=== PATIENT | male | born 1955 | race Caucasian/White ===

== ENCOUNTER → 2020-07-30 | Emergency (ER) | payer MEDICARE, OTHER ==
[~2020-07-30] MED LIST: EPINEPHrine 1 MG/10 ML Abboject SYRINGE ONE; Sodium Bicarb 50 MEQ/50 ML Abboject 8.4% SYRINGE ONE
== END ==
LOC: BURERS 19:12
DX: I46.9 Cardiac arrest, cause unspecified (principal); E11.9 Type 2 diabetes mellitus without complications; I10 Essential (primary) hypertension
CPT/HCPCS: 92950; 96374; 96375; J0171